=== PATIENT | female | born 1955 | race Caucasian/White ===

== ENCOUNTER 2017-10-19 14:12 | Emergency (ER) | payer OTHER ==
[~2017-10-19] VITALS: Ht 170.2 cm; Wt 60.0 kg
[2017-10-19 14:21] VITALS: BP 134/72; PULSE 77; RESP 16; TEMP 98.1; O2SAT 100
--- NOTE | 2017-10-19 17:21 | PD ---
HPI Chief Complaint: Back/ Neck Pain or Injury Time Seen by Provider: 17:13 Travel History International Travel<30 days: No Contact w/Intl Traveler<30days: No Traveled to known affect area: No History of Present Illness HPI 62-year-old female came to the emergency room with history of left sided lower back pain that started about 4-5 days ago. Patient says she was not complaining when she turned suddenly and felt a pop. Since then she has been in pain. Today she went for physical therapy for her chronic left hip and elbow pain but because of this pain that worsened today she eventually decided to come to the emergency room. She drove herself in. Pain is worse upon ambulating or movement. It is mostly localized to the left SI joint without much radiation. Patient has never had this kind of pain before although she later on tells me that she has history of arthritis of her neck as well as lower back. She seen by an orthopedist for her right hip and elbow for which she has been getting physical therapy. Vital signs are stable. No bladder or bowel issues. PFSH Past Medical History Narrative Medical List of her past medical, surgical, social and family history is reviewed from the nursing note Social History Tobacco Use: Yes Allergies-Medications (Allergen,Severity, Reaction): Coded Allergies: latex (Verified Allergy, Severe, Rash, 10/19/17) peanut (Verified Allergy, Severe, Anaphylaxis, 10/19/17) Penicillins (Verified Allergy, Unknown, 10/19/17) Comments List of her allergies reviewed from the nursing note Reported Meds & Prescriptions Reported Meds & Active Scripts Active Flexeril (Cyclobenzaprine HCl) 5 Mg Tab 5 Mg PO TID Ibuprofen 600 Mg Tab 600 Mg PO Q6H PRN Reported Vitamin K (Phytonadione) 100 Mcg Tab Unknown Dose PO EVERY OTHER DAY Vitamin D3 (Cholecalciferol) 1,000 Unit Chew Unknown Dose CHEW EVERY OTHER DAY Kacie (Glucosamine Sulfate) 750 Mg Tab 750 Mg PO DAILY Turmeric (Turmeric (Curcuma Longa)) 450 Mg-50 Mg Cap 450 Mg PO DAILY Multiple Vitamin 1 Tab 1 Tab PO DAILY Clindamycin (Clindamycin HCl) 300 Mg Cap 300 Mg PO Q8HR Aspirin 81 Mg Chew 81 Mg CHEW DAILY Atorvastatin (Atorvastatin Calcium) 20 Mg Tab 20 Mg PO DAILY Metoprolol Tartrate 50 Mg Tab 50 Mg PO DAILY Flecainide (Flecainide Acetate) 100 Mg Tab 100 Mg PO BID Narrative Medication List of her home medications reviewed from the nursing Review of Systems Except as stated in HPI: all other systems reviewed are Neg Musculoskeletal: Positive: Pain Physical Exam Narrative GENERAL: Awake, alert, moderate distress SKIN: Focused skin assessment warm/dry. HEAD: Atraumatic. Normocephalic. EYES: Pupils equal and round. No scleral icterus. No injection or drainage. ENT: No nasal bleeding or discharge. Mucous membranes pink and moist. NECK: Trachea midline. No JVD. CARDIOVASCULAR: Regular rate and rhythm. No murmur appreciated. RESPIRATORY: No accessory muscle use. Clear to auscultation. Breath sounds equal bilaterally. GASTROINTESTINAL: Abdomen soft, non-tender, nondistended. Hepatic and splenic margins not palpable. MUSCULOSKELETAL: No obvious deformities. No clubbing. No cyanosis. No edema. No point tenderness of the spine. No para spinal spasm NEUROLOGICAL: Awake and alert. No obvious cranial nerve deficits. Motor grossly within normal limits. Normal speech. PSYCHIATRIC: Appropriate mood and affect; insight and judgment normal. Data Data Last Documented VS Orders Orders Ketorolac Inj (Toradol Inj) (10/19/17 17:30) Orphenadrine Inj (Norflex Inj) (10/19/17 17:30) Spine, Lumbar Comp W/Obliq (10/19/17 ) Pelvis, Ap Only (Routine) (10/19/17 ) Ed Discharge Order (10/19/17 19:09) MDM Medical Decision Making Medical Screen Exam Complete: Yes Emergency Medical Condition: Yes Medical Record Reviewed: Yes Differential Diagnosis Compression fracture, SI joint arthritis, lumbar radiculopathy, DJD Narrative Course 7:22 PM patient was given pain medication and muscle relaxant. X-ray was ordered and the x-ray has been read by the radiologist as arthritis/DJD of the spine. I went back and reassessed the patient and she says she is feeling much better. I let her know about the x-ray report. I will discharge her home Procedures EKG Prior to Arrival: No Diagnosis Primary Impression: Low back pain Qualified Codes: M54.5 - Low back pain Additional Impression: Arthritis Referrals: [facility] Additional Instructions: Take the medication as per prescription direction. Do not lift anything heavy. Apply warm compresses alternating with cold compress. If the symptoms do not get better in next 4-5 days and you need to follow-up with your primary care doctor or [place] [facility] whose address has been provided to you on this discharge instruction and get an outpatient MRI of the back. Med/Other Pt SpecificInfo: Prescription(s) given Scripts Cyclobenzaprine (Flexeril) 5 Mg Tab 5 MG PO TID for Muscle Spasm, #15 TAB 0 Refills Prov: Karen Blackburn MD 10/19/17 Ibuprofen (Ibuprofen) 600 Mg Tab 600 MG PO Q6H Y for Pain/Inflammation, #40 TAB 0 Refills Prov: Karen Blackburn MD 10/19/17 Disposition: 01 DISCHARGE HOME Condition: Stable Karen Blackburn MD Oct 19, 2017 17:21
[2017-10-19] MEDS ORDERED: ORPHENADRINE INJ 60 MG/2 ML AMP IM ONE (17:30)
[2017-10-19] MEDS ORDERED: KETOROLAC TROMETHAMINE 60 MG/2 ML (IM) VIAL IM ONE (17:30)
[2017-10-19] MEDS ORDERED: ATOR20TA15 PO (17:35)
[2017-10-19] MEDS ORDERED: FLEC100T PO (17:35)
[2017-10-19] MEDS ORDERED: METO50TA PO (17:35)
[2017-10-19] MEDS ORDERED: ASPI-516 CHEW (17:35)
[2017-10-19] MEDS ORDERED: VITA100T50 PO (17:35)
[2017-10-19] MEDS ORDERED: CLIN300C5 PO (17:35)
[2017-10-19] MEDS ORDERED: MULTTAB67 PO (17:35)
[2017-10-19] MEDS ORDERED: TURM500C3 PO (17:35)
[2017-10-19] MEDS ORDERED: [UNRECOGNIZED DRUG - CODE] PO (17:35)
[2017-10-19] MEDS ORDERED: CHOL100025 CHEW (17:35)
--- NOTE | 2017-10-19 18:19 | RADRPT ---
EXAM DATE: 10/19/2017 6:15 PM EDT AGE/SEX: 62 years / Female INDICATIONS: Lumbar and left SI joint pain. CLINICAL DATA: This is the patient's initial encounter. Patient reports that signs and symptoms have been present for 2 weeks and indicates a pain score of 9/10. MEDICAL/SURGICAL HISTORY: HIV. A-fib. . Left hand. Cardiac ablation. COMPARISON: No prior exams available for comparison. FINDINGS: 5 views of the lumbar spine demonstrate 5 nonrib-bearing lumbar vertebral bodies. No fracture or comp ression deformity is present. No anterolisthesis, retrolisthesis, or pars defects are identified. The re is mild decreased disc height at L3-L4, L4-L5, and L5-S1. Small endplate osteophytes are present a nteriorly at these levels. The pelvic bones, sacroiliac joints, and soft tissues demonstrate no acute abnormality. CONCLUSION: 1. No acute lumbar spine abnormality is identified to explain the clinical symptoms. 2. There is degenerative disc disease at L3-L4, L4-L5, and L5-S1. Electronically signed by: Donald Khalil MD 10/19/2017 6:17 PM EDT
--- NOTE | 2017-10-19 18:25 | RADRPT ---
EXAM DATE: 10/19/2017 6:17 PM EDT AGE/SEX: 62 years / Female INDICATIONS: SI joint pain, left. CLINICAL DATA: This is the patient's initial encounter. Patient reports that signs and symptoms have been present for 2 weeks and indicates a pain score of 9/10. MEDICAL/SURGICAL HISTORY: Hypercholesterolemia. A-fib. . Left hand. Cardiac ablation. COMPARISON: No prior exams available for comparison. FINDINGS: AP view of the pelvis demonstrates no fracture or dislocation. Mineralization is normal. The sacroili ac joints demonstrate no abnormality. Hip joints demonstrate no significant degenerative change. No s oft tissue abnormality or radiopaque foreign body is seen. CONCLUSION: No acute pelvis abnormality is identified. Electronically signed by: Donald Khalil MD 10/19/2017 6:24 PM EDT
[2017-10-19 18:39] VITALS: RESP 20
[2017-10-19] MEDS ORDERED: CYCL5TAB PO (19:12)
[2017-10-19] MEDS ORDERED: IBUP-232 PO (19:12)
== END 2017-10-19 19:16 | disposition home or self-care (01) ==
LOC: NEPD 14:12 → EDBD 14:12 → NEPD 19:16
DX: M51.36 Other intervertebral disc degeneration, lumbar region (principal); M51.37 Other intervertebral disc degeneration, lumbosacral region; M19.90 Unspecified osteoarthritis, unspecified site; Z88.0 Allergy status to penicillin; Z79.82 Long term (current) use of aspirin; Z79.899 Other long term (current) drug therapy
CPT/HCPCS: 72110; 72170; 96372; 99283; J1885; J2360